=== PATIENT | female | born 1995 | race Two or more races ===

== ENCOUNTER 2025-04-24 12:48 | Inpatient (IN) | payer OTHER ==
[~2025-04-24] VITALS: Ht 152.4 cm; Wt 71.2 kg
--- NOTE | 2025-04-24 14:33 | NUR ---
PACIENTE FEMENINA ALERTA Y ORIENTADO X 3 CON REFERIDO MEDICO REFIERE TENER INFLAMACION Y ENROJECIMIENTO EN EL MUSLO DERECHO. SE MIDEN SIGNOS VITALES Y SE UBICA.
[2025-04-24] MEDS ORDERED: FAMOTIDINE/PF 20 MG in 0.9 % SODIUM CHLORIDE 8 ML IV PUSH STA (14:57)
[2025-04-24] MEDS ORDERED: CEFTRIAXONE SODIUM 2,000 MG VIAL IV ONE (15:00)
[2025-04-24] MEDS ORDERED: 0.9 % SODIUM CHLORIDE 1,000 ML IV SCH ×2 (15:00→22:00)
[2025-04-24] MEDS ORDERED: METHYLPREDNISOLONE SOD SUCC 40 MG VIAL IV ONE (15:15)
[2025-04-24] MEDS ORDERED: NASAL MIST126 ML (15:19)
[2025-04-24] MEDS ORDERED: METHYLPREDNISOLONE SOD SUCC 40 MG VIAL ONE (15:49)
[2025-04-24] MEDS ORDERED: CEFTRIAXONE SODIUM 2,000 MG VIAL ONE (15:49)
[2025-04-24] MEDS ORDERED: FAMOTIDINE/PF 20 MG/2 ML VIAL ONE (15:49)
[2025-04-24] MEDS ORDERED: WATER FOR INJ.,BACTERIOSTATIC 30 ML VIAL IJ ONE (15:50)
--- NOTE | 2025-04-24 16:26 | NUR ---
LORE ORINENTA PTE SOBRE TRATAMIENTO MEDICO Y LO EJECUTA EN VILLALTA TOTALIDAD.
[2025-04-24 16:34] LABS: BASO % 0.2 % (0.1-1.2); EOS # 0.13 (0.04-0.54); EOS % 2.2 % (0.7-7.0); LYMPH # 1.58 (1.18-3.74); LYMPH % 27.0 % (19.3-53.1); MEAN PLATELET VOLUME 8.80 fl (9.4-12.4); MONO # 0.37 (0.24-0.82); MONO % 6.3 % (4.7-12.5); NEUT # 3.75 (1.56-6.13); NEUT % 64.1 % (34.0-71.1); RED CELL DISTRIBUTION WIDTH 13.2 % (11.6-14.4)
[2025-04-24 16:39] LABS: ERYTHROCYTE SEDIMENTATION RATE 53 mm/hr (0-20)
[2025-04-24 17:46] LABS: ALT/SGPT 59.0 U/L (12-78); AST/SGOT 63.0 U/L (15-37); BILIRUBIN TOTAL 0.47 mg/dL (0.3-1.2); BUN CREA RATIO 18.0 (7.0-25.0); CREATININE SERUM 0.34 mg/dL (0.55-1.02); GFR 230.96; GLOBULINA 4.1 G/DL (2.4-3.5); GLUCOSE FASTING 81.0 mg/dL (65-100); OSMOLALITY SERUM 274.0 MOSM/KG (275-295)
[2025-04-24 17:57] LABS: CKMB 75.3 NG/ML (0.5-3.6)
--- NOTE | 2025-04-24 17:58 | NUR ---
CARLITOSO DE LABORATORIO MB 75.3 [address] RIOS
[2025-04-24] MEDS ORDERED: ENOXAPARIN SODIUM 40 MG/0.4 ML SYRINGE SUBCUTANEO ONE ×2 (19:15→20:17)
[2025-04-24] MEDS ORDERED: ACETAMINOPHEN 500 MG GEL..CAP PO SCH (21:57)
[2025-04-25 06:33] VITALS: BP 112/66; O2SAT 95
[2025-04-25 06:59] LABS: BASO % 0.2 % (0.1-1.2); EOS # 0.03 (0.04-0.54); EOS % 0.5 % (0.7-7.0); LYMPH # 1.55 (1.18-3.74); LYMPH % 26.3 % (19.3-53.1); MEAN PLATELET VOLUME 9.60 fl (9.4-12.4); MONO # 0.56 (0.24-0.82); MONO % 9.5 % (4.7-12.5); NEUT # 3.73 (1.56-6.13); NEUT % 63.3 % (34.0-71.1); RED CELL DISTRIBUTION WIDTH 13.1 % (11.6-14.4)
[2025-04-25 07:45] LABS: GLUCOSE FASTING 131.0 mg/dL (65-100); OSMOLALITY SERUM 281.0 MOSM/KG (275-295)
[2025-04-25 07:50] LABS: BUN CREA RATIO 50.0 (7.0-25.0); CREATININE SERUM 0.24 mg/dL (0.55-1.02)
[2025-04-25 08:37] VITALS: BP 95/53; O2SAT 99
[2025-04-25] MEDS ORDERED: ENOXAPARIN SODIUM 40 MG/0.4 ML SYRINGE SUBCUTANEO SCH (09:00)
[2025-04-26 01:25] VITALS: BP 108/74; O2SAT 100
[2025-04-26 08:21] VITALS: BP 98/65; O2SAT 98
[2025-04-26 08:25] VITALS: BP 98/65; O2SAT 98
[2025-04-26] MEDS ORDERED: DIATRIZOATE MEGLUMINE, SODIUM 30 ML BOTTLE PO NR (08:30)
[2025-04-26 16:00] VITALS: BP 105/68; O2SAT 98
[2025-04-27 02:04] VITALS: BP 103/56; O2SAT 100
[2025-04-27 08:00] VITALS: BP 96/60; O2SAT 98
[2025-04-27 16:50] VITALS: BP 88/51; O2SAT 98
[2025-04-28] VITALS: BP 112/75; O2SAT 100
[2025-04-28 07:30] VITALS: BP 98/62; O2SAT 99
[2025-04-28 10:48] VITALS: BP 130/85; O2SAT 99
[2025-04-29 16:11] LABS: BB 0 % (0); MM 85 % (97-100); c mb 6 % (0-3); macro t 9 % (Not Observed); macro tyoe 2 0 % (Not Observed)
== END 2025-04-28 12:47 | disposition home or self-care (01) | DRG 300 ==
LOC: ER 12:49 → SEC-K 22:13 → SURH 22:13 → SURG 04-25 15:14
PROVIDERS: General Practice; ADMIT Internal Medicine; ATTEND Internal Medicine
PROC: B54BZZZ Ultrasonography of Right Lower Extremity Veins (ICD-10-PCS; principal; 2025-04-24)
PROC: BW40ZZZ Ultrasonography of Abdomen (ICD-10-PCS; 2025-04-25)
PROC: B54MZZZ Ultrasonography of Right Upper Extremity Veins (ICD-10-PCS; 2025-04-25)
PROC: BW21YZZ Computerized Tomography (CT Scan) of Abdomen and Pelvis using Other Contrast (ICD-10-PCS; 2025-04-26)
DX: I82.401 Acute embolism and thrombosis of unspecified deep veins of right lower extremity (principal); M62.82 Rhabdomyolysis; M79.89 Other specified soft tissue disorders; D64.9 Anemia, unspecified